=== PATIENT | female | born 1970 | race Caucasian/White ===

== ENCOUNTER 2020-07-31 09:55 | Outpatient (REF) | payer OTHER, SELFPAY ==
[2020-07-31 12:33] LABS: Vitamin D 25-OH Total 27.3 ng/mL (>30)
[2020-07-31 12:39] LABS: Cholesterol 243 mg/dL; HDL Cholesterol 44 mg/dL; LDL Cholesterol Calculated 171 mg/dl; Triglycerides 142 mg/dL
== END 2020-07-31 09:56 | disposition home or self-care (01) ==
LOC: HO.HMGCLDS 09:55
PROVIDERS: PCP Internal Medicine; Visit Provider Internal Medicine
DX: Z00.01 Encounter for general adult medical examination with abnormal findings (principal); Z78.0 Asymptomatic menopausal state
CPT/HCPCS: 80061; 82306

== ENCOUNTER → 2020-09-10 13:29 | Outpatient (BNVA) | payer OTHER, SELFPAY | PROVIDERS: PCP Internal Medicine; Referring Provider Internal Medicine; Visit Provider Nurse Practitioner Family | DX: Z76.89 Persons encountering health services in other specified circumstances (principal) ==

== ENCOUNTER 2020-10-06 13:35 | Outpatient (REF) | payer OTHER, SELFPAY ==
[2020-10-07 12:06] LABS: BV Int Neg Control Negative (Negative); BV Int Pos Control Positive (Positive)
[2020-10-08 09:02] LABS: C. trachomatis RNA TMA NOT DETECTED (NOT DETECTED); N. gonorrhoeae RNA TMA NOT DETECTED (NOT DETECTED)
[2020-10-09 18:32] LABS: HPV mRNA E6/E7 rflx Not Detected (Not Detected)
== END 2020-10-06 13:36 | disposition home or self-care (01) ==
LOC: HO.LAB 13:35
PROVIDERS: PCP Internal Medicine; Visit Provider Advanced Practice Midwife
DX: Z12.4 Encounter for screening for malignant neoplasm of cervix (principal); N89.8 Other specified noninflammatory disorders of vagina
CPT/HCPCS: 36415; 87480; 87491; 87510; 87591; 87624; 87660; 88141; 88142

== ENCOUNTER 2021-02-20 12:53 | Outpatient (REF) | payer OTHER, SELFPAY ==
[2021-02-20 14:18] LABS: Hematocrit 40.1 % (37-47); Mean Corpuscular HGB Conc 32.4 g/dl (31.0-35.0); Mean Corpuscular Volume 92.4 fL (80-98); Mean Platelet Volume 12.5 fL (9.4-12.3); Platelet Count 134 X10*3/uL (160-400); Red Blood Count 4.34 X10*6/uL (4.20-5.50); Red Cell Distribution Width 12.9 % (11.0-16.0); White Blood Count 8.9 X10*3/uL (4.8-10.8)
[2021-02-20 14:36] LABS: Alanine Aminotransferase 16 U/L (0-31); Alkaline Phosphatase 53 U/L (39-117); Anion Gap 10 (12-20); Aspartate Amino Transferase 18 U/L (5-31); Bilirubin Total 0.4 mg/dL (0.0-1.0); Blood Urea Nitrogen 11 mg/dL (9-16); Calcium 8.9 mg/dL (8.4-10.2); Carbon Dioxide 28 mmol/L (22-29); Chloride 106 mmol/L (96-108); Estimated Glomerular Filt Rate > 60; Glucose Random 83 mg/dL (60-115); Sodium 140 mmol/L (135-145); Total Protein 6.2 g/dL (6.5-8.0)
[2021-02-20 14:45] LABS: TSH reflex Free T4 0.62 uIU/mL (0.32-4.0)
== END 2021-02-20 12:54 | disposition home or self-care (01) ==
LOC: HO.HMGCLDS 12:53
PROVIDERS: Nurse Practitioner Family; PCP Internal Medicine; Visit Provider Internal Medicine
DX: Z12.11 Encounter for screening for malignant neoplasm of colon (principal); E03.9 Hypothyroidism, unspecified
CPT/HCPCS: 36415; 80053; 84443; 85027

== ENCOUNTER 2021-06-12 14:32 | Emergency (ER) | payer OTHER, SELFPAY ==
--- NOTE | ~2021-06-12 | XR_ITS ---
EXAMINATION: XR CHEST XR RIBS, BILATERAL CLINICAL INFORMATION: Chest wall pain COMPARISON: Chest radiograph from 03/01/2020 TECHNIQUE: 5 views of the bilateral ribs chest FINDINGS: No focal consolidation. No pneumothorax. Trachea is midline. Cardiac mediastinal silhouette is not enlarged. No large pleural effusions. Soft tissues are unremarkable. Surgical clips in the right upper quadrant abdomen. Degenerative changes of the thoracolumbar spine. No acute visualized rib fractures. XR/XR chest 2V IMPRESSION: 1. No acute cardiopulmonary process. 2. No acute visualized rib fractures.
--- NOTE | ~2021-06-12 | XR_ITS ---
EXAMINATION: XR CHEST XR RIBS, BILATERAL CLINICAL INFORMATION: Chest wall pain COMPARISON: Chest radiograph from 03/01/2020 TECHNIQUE: 5 views of the bilateral ribs chest FINDINGS: No focal consolidation. No pneumothorax. Trachea is midline. Cardiac mediastinal silhouette is not enlarged. No large pleural effusions. Soft tissues are unremarkable. Surgical clips in the right upper quadrant abdomen. Degenerative changes of the thoracolumbar spine. No acute visualized rib fractures. XR/XR ribs BI 3V IMPRESSION: 1. No acute cardiopulmonary process. 2. No acute visualized rib fractures.
[2021-06-12 14:40] VITALS: BP 170/84; PULSE 72; O2SAT 100
[2021-06-12 14:44] VITALS: BP 140/73; PULSE 67; RESP 16; TEMP 36.9; O2SAT 98; BMI 22.6
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
== END 2021-06-12 15:30 | disposition left against medical advice (07) ==
PROVIDERS: Emergency Provider Emergency Medicine; PCP Internal Medicine
DX: S20.213A Contusion of bilateral front wall of thorax, initial encounter (principal); S80.12XA Contusion of left lower leg, initial encounter; M79.662 Pain in left lower leg; R07.89 Other chest pain; F17.210 Nicotine dependence, cigarettes, uncomplicated; V43.62XA Car passenger injured in collision with other type car in traffic accident, initial encounter; Y93.9 Activity, unspecified; Y92.410 Unspecified street and highway as the place of occurrence of the external cause; Y99.9 Unspecified external cause status; Z79.899 Other long term (current) drug therapy; Z71.6 Tobacco abuse counseling
CPT/HCPCS: 71046; 71110; 99283

== ENCOUNTER → 2021-08-19 14:04 | Outpatient (BNVA) | payer OTHER, SELFPAY | PROVIDERS: PCP Internal Medicine; Visit Provider Nurse Practitioner Family | DX: M19.041 Primary osteoarthritis, right hand (principal); M19.042 Primary osteoarthritis, left hand; M79.7 Fibromyalgia | CPT/HCPCS: 99212 ==

== ENCOUNTER 2021-10-19 11:09 | Outpatient (REF) | payer OTHER, SELFPAY ==
[2021-10-19 14:26] LABS: Cholesterol 190 mg/dL; HDL Cholesterol 35 mg/dL; LDL Cholesterol Calculated 126 mg/dl; Triglycerides 149 mg/dL
[2021-10-19 14:38] LABS: Vitamin D 25-OH Total 30.9 ng/mL (>30)
== END 2021-10-19 11:10 | disposition home or self-care (01) ==
LOC: HO.HMGCLDS 11:09
PROVIDERS: Visit Provider Internal Medicine
DX: E55.9 Vitamin D deficiency, unspecified (principal); E78.5 Hyperlipidemia, unspecified
CPT/HCPCS: 36415; 80061; 82306

== ENCOUNTER 2023-01-11 09:40 | Outpatient (REF) | payer OTHER, SELFPAY ==
[2023-01-11 12:03] LABS: Alanine Aminotransferase 13 U/L (0-31); Anion Gap 11 (12-20); Aspartate Amino Transferase 16 U/L (5-31); Blood Urea Nitrogen 10 mg/dL (9-16); Calcium 9.5 mg/dL (8.4-10.2); Carbon Dioxide 29 mmol/L (22-29); Chloride 107 mmol/L (96-108); Cholesterol 251 mg/dL; Estimated Glomerular Filt Rate 60; Glucose Fasting 93 mg/dL (60-99); HDL Cholesterol 46 mg/dL; LDL Cholesterol Calculated 184 mg/dl; Sodium 143 mmol/L (135-145); Triglycerides 109 mg/dL
[2023-01-11 12:06] LABS: Free T4 (Free Thyroxine) 1.16 ng/dL (0.71-1.85); Thyroid Stimulating Hormone 1.32 uIU/mL (0.32-4.0); Vitamin D 25-OH Total 36.1 ng/mL (>30)
== END 2023-01-11 09:41 | disposition home or self-care (01) ==
LOC: HO.HMGCLDS 09:40
PROVIDERS: PCP Internal Medicine; Visit Provider Internal Medicine
DX: E03.9 Hypothyroidism, unspecified (principal); E55.9 Vitamin D deficiency, unspecified; E78.5 Hyperlipidemia, unspecified; M19.90 Unspecified osteoarthritis, unspecified site
CPT/HCPCS: 36415; 80048; 80061; 82306; 84439; 84443; 84450; 84460

== ENCOUNTER 2023-01-14 10:43 | Outpatient (REF) | payer OTHER, SELFPAY ==
--- NOTE | ~2023-01-14 | XR_ITS ---
EXAMINATION: XR LUMBOSACRAL SPINE WITH OBLIQUES CLINICAL INFORMATION: Low back pain COMPARISON: Previous x-ray May 2017 TECHNIQUE: AP, both oblique, and lateral views of the lumbar spine. Lateral view of the lumbosacral junction. FINDINGS: Bone alignment is normal. No fracture or dislocation. There may be a transitional vertebral body segment or 6 lumbar-type vertebral bodies. Disc spaces are normal. There is lower lumbar spine facet arthritis. No pars defect is seen. Paraspinal soft tissues are normal. XR/XR lumbar spine 4V min IMPRESSION: Lower lumbar spine facet arthritis.
== END 2023-01-14 10:44 | disposition home or self-care (01) ==
LOC: HO.HMGCX 10:43
PROVIDERS: PCP Internal Medicine; Visit Provider Internal Medicine
DX: M54.50 Low back pain, unspecified (principal)
CPT/HCPCS: 72110

== ENCOUNTER 2023-03-30 12:24 | Outpatient (REF) | payer OTHER, SELFPAY ==
--- NOTE | ~2023-03-30 | MM_ITS ---
EXAMINATION: MM SCREENING DIGITAL BREAST TOMOSYNTHESIS, BILATERAL CLINICAL INFORMATION: Screening. Asymptomatic. The lifetime risk of breast cancer based on the Tyrer-Cuzick Model is 6.1%. COMPARISON: Mammography: This study is compared with the prior examination 2010. TECHNIQUE: Digital breast tomosynthesis is performed in both the craniocaudal and mediolateral oblique views along with computer-aided detection (CAD). Synthesized 2D images are generated from the tomosynthesis. FINDINGS: There are scattered areas of fibroglandular density (ACR BI-RADS breast composition Category b). There are no significant masses, abnormal calcifications, or other abnormalities. MM/MM tomosynthesis screening BI IMPRESSION: No mammographic evidence of malignancy. ASSESSMENT: BI-RADS BI-RADS 1 - Negative RECOMMENDATION: Routine annual mammography screening. 1 year F/U This examination should not preclude the clinical evaluation of a suspicious palpable abnormality. This patient's information was entered into a reminder system with a target due date for their next mammogram.
== END 2023-03-30 12:25 | disposition home or self-care (01) ==
LOC: HO.MAMMO 12:24
PROVIDERS: PCP Internal Medicine; Visit Provider Internal Medicine
DX: Z12.31 Encounter for screening mammogram for malignant neoplasm of breast (principal)
CPT/HCPCS: 77063; 77067

== ENCOUNTER → 2023-03-30 12:30 | Outpatient (BNV) | payer OTHER, SELFPAY | PROVIDERS: PCP Internal Medicine; Visit Provider Radiology Diagnostic Radiology | DX: Z12.31 Encounter for screening mammogram for malignant neoplasm of breast (principal) | CPT/HCPCS: 77063; 77067 ==

== ENCOUNTER 2023-07-05 09:48 | Outpatient (AMB) | payer OTHER, SELFPAY ==
--- NOTE | 2023-07-05 10:06 | MHC.OFFVIS ---
Intake Vital Signs 07/05/23 10:20 Height 5 ft 4 in Weight 126 lb 5.198 oz BMI 21.7 BP 100/70 Blood Pressure Location Lt brachial Position Sitting Pulse 75 Pulse Source Pulse Oximeter Temp 97.4 F Temp Source Skin Pulse Oximetry (%) 96 Oxygen Delivery Method Room Air Intake Visit Reasons: OA Intake Note: Patient presents today to follow up on OA. c/o back pain, finger swelling and pain, left outter abd pain Press Assistant And Feeder Required: No Accompanied by: Self / Same As Patient Allergies Sulfa (Sulfonamide Antibiotics) [Sulfa (Sulfonamides)] Allergy (Mild, Verified 07/05/23 10:06) Swelling Medication List - Last Reconciled 07/05/23 by Walter Lowry MD albuterol sulfate 90 mcg/actuation 1 inh inhalation Q4H PRN atorvastatin 10 mg PO DAILY diclofenac sodium 50 mg PO BID PRN levothyroxine 88 mcg PO QAM methadone 120 mg PO DAILY HPI HPI Comments History of Present Illness Details The patient presents for evaluation of her osteoarthritis and fibromyalgia. She is on diclofenac 50 mg once or twice a day. That is somewhat helpful but she does note that she gets epigastric pains intermittently. She has been referred to GI for this but has not kept an appointment yet. She also has other pains involving the neck, shoulders, lower back, buttock areas, knees and left lower leg. These tend to be worse with more physical activity. She notes that in the hands she has had bony deformities for years. She has remained on methadone, currently taking 120 mg daily. COUNTS INCLUDE 234 BEDS AT THE [facility] Medical History (Updated 07/05/23 @ 10:54 by Walter Lowry MD) Mild intermittent asthma Lumbago syndrome Absent pedal pulses Heavy sensation of lower extremity Vitamin D deficiency Dyslipidemia Asthma Smoker unmotivated to quit Osteoarthritis Depression with anxiety Opiate addiction Acquired hypothyroidism Menopause Hx of drainage of abscess Surgical History Hx of cholecystectomy Family History Father Unknown family medical history Mother HTN (hypertension) CVD (cardiovascular disease) Maternal Grandmother Diabetes mellitus Brother Substance use disorder Mental health disorder Social History Housing: Apartment Alcohol intake: never Patient Tobacco Use Status: Current someday Tobacco user Tobacco use type: Cigarette Cigarettes Per Day: 4 Years Smoked: 33 e-Cigarette/Vaping Use: Never Used Second Hand Smoke Exposure: Yes Substance Use Type: Methamphetamine service: No Current occupational status: disabled Cognitive needs: No Hearing needs: No Vision needs: No Review of Systems Const Details: Fatigue and low energy. Negative for appetite change, weight change, fever, chills, malaise Eyes Details: Negative for vision change, dry eyes,headaches and dizziness Card Details: Negative chest pain, edema and syncope Resp Details: Negative for SOB, cough and wheezing GI Details: Mild episodes of epigastric pain and nausea. Negative nausea, abdominal pain, bowel changes, diarrhea, constipation and bloody stool. Endo Details: Negative for polyuria and polydypsia Bryon/Lymph Details: Negative for excessive bruising or bleeding. Physical Exam Vital Signs: Last Vital Signs Temp 97.4 F 07/05/23 10:20 Pulse 75 07/05/23 10:20 BP 100/70 07/05/23 10:20 Pulse Ox 96 07/05/23 10:20 Oxygen Delivery Method Room Air 07/05/23 10:20 BMI result Body Mass Index 21.7 APPEARANCE: Patient in no acute distress EYES no redness, pupils equal and reactive to light, eyelids normal. No temporal artery tenderness, redness or swelling. EXTREMITIES: No edema, slight left calf tenderness but no swelling or redness. No palpable veins. She has normal peripheral pulses. NEURO: Oriented and alert x3. No focal weakness. Reflexes symmetric. Gait normal. SKIN: No inflammatory or neoplastic lesions. Normal color and turgor JOINT EXAM:?? Cervical Spine:.? Mild pain with extremes of normal range of motion with some cervical muscle tenderness. Thoracic Spine:.? No scoliosis.? No tenderness on palpation. Lumbar Spine:.? Alignment normal.? Mild pain at the extremes of normal range of motion. Some paraspinal muscle tenderness. Chest Wall:? No tenderness, swelling, increased warmth or erythema. Hands:.? Both hands have some mild bony enlargement at all the PIP joints. There is more prominent bony enlargement and tenderness at the D IP joints. The right 2nd PIP has had surgery with eschar present. This right 2nd distal phalanx seems to be shorter am with less tissue on the ulnar side than the other distal phalanges. There is no tenderness or breaks in the skin currently. There is minimal motion at that right 2nd D IP joint. Wrists:.? Normal pain-free range of motion without tenderness, swelling, increased warmth or erythema. Elbows:. Normal pain-free range of motion without tenderness, swelling, increased warmth or erythema. Shoulders:.?? Full range of motion with mild discomfort at the extremes. There is some mild medial compartment tenderness but no effusion, weakness, swelling, increased warmth or erythema. Hips:. Left: There is mild lateral and posterior lateral pain with extremes of abduction or external rotation. No groin pain with motion. Right:? Full range of motion without pain. Hip bursa:? Mild left trochanteric tenderness. Knees:?? Normal pain-free range of motion with mild patellofemoral crepitus and some slight medial compartment tenderness but no effusion, swelling, increased warmth or erythema.? Ankles:.? Normal pain-free range of motion without tenderness, swelling, increased warmth or erythema. Feet:.? Normal pain-free range of motion without tenderness, swelling, increased warmth or erythema. Tender points:.? Mild tenderness to digital palpation at the occiput, trapezius, second rib, lateral epicondyle, knees, greater trochanter and gluteal area bilaterally. ? Results Reviewed Results Reviewed: [facility] [place] [facility] [address] [place] [address] XRay Report Signed Patient: Ingris Lowe MR#: [id number] : 1970 Acct:[id number] Age/Sex: 52 / F ADM Date: 01/14/[address]: Richa Acuna MD Ordering Physician: Richa Acuna MD Date of Service: 01/14/23 Procedure(s): XR lumbar spine 4V min Accession Number(s): [id number] cc: Richa Acuna MD~ EXAMINATION: XR LUMBOSACRAL SPINE WITH OBLIQUES CLINICAL INFORMATION: Low back pain COMPARISON: Previous x-ray May 2017 TECHNIQUE: AP, both oblique, and lateral views of the lumbar spine. Lateral view of the lumbosacral junction. FINDINGS: Bone alignment is normal. No fracture or dislocation. There may be a transitional vertebral body segment or 6 lumbar-type vertebral bodies. Disc spaces are normal. There is lower lumbar spine facet arthritis. No pars defect is seen. Paraspinal soft tissues are normal. XR/XR lumbar spine 4V min IMPRESSION: Lower lumbar spine facet arthritis. Dictated By: Freda Neumann MD Assessment & Plan Assessment & Plan (1) NSAID long-term use: Code(s): Z79.1 - shelter (current) use of non-steroidal anti-inflammatories (NSAID) (2) Fibromyalgia: Code(s): M79.7 - Fibromyalgia (3) Osteoarthritis of both hands: Code(s): M19.041 - Primary osteoarthritis, right hand; M19.042 - Primary osteoarthritis, left hand Plan On exam she does not have any signs of an active inflammatory arthritis. There are clear signs of osteoarthritis in the fingers, particularly in the DIP joints. The patient has some left buttock pain and back pain likely related to lumbar osteoarthritis. She is on a hefty dose of methadone so I would be wary about adding other sedating medications such as gabapentin or pregabalin for the fibromyalgia. Light aerobic activity is encouraged. She should stop the diclofenac as it may be causing gastritis and just stick with acetaminophen up to 1 g t.i.d.. She should follow through with planned GI consultation. Follow-up at 6 months would be reasonable. Orders: Orders Complete Blood Count Auto Diff Today Z79.1 - shelter (current) use of non-steroidal anti-inflammatories (NSAID) Coding Level of Care Code Est Pt Level 3 (38706) Diagnoses NSAID long-term use Z79.1 Fibromyalgia M79.7 Osteoarthritis of both hands M19.041; M19.042
[2023-07-05 10:20] VITALS: BP 100/70; PULSE 75; TEMP 36.3; O2SAT 96; BMI 21.7
== END 2023-07-05 11:00 | disposition home or self-care (01) ==
PROVIDERS: PCP Internal Medicine; Visit Provider Internal Medicine Rheumatology
DX: Z79.1 Long term (current) use of non-steroidal anti-inflammatories (NSAID) (principal); M79.7 Fibromyalgia; M19.041 Primary osteoarthritis, right hand; M19.042 Primary osteoarthritis, left hand
CPT/HCPCS: 99213

== ENCOUNTER → 2023-07-05 09:48 | Outpatient (BNVA) | payer OTHER, SELFPAY | PROVIDERS: PCP Internal Medicine; Visit Provider Internal Medicine Rheumatology | DX: M19.041 Primary osteoarthritis, right hand (principal); M19.042 Primary osteoarthritis, left hand; M79.7 Fibromyalgia; Z79.1 Long term (current) use of non-steroidal anti-inflammatories (NSAID) | CPT/HCPCS: 99212 ==

== ENCOUNTER 2023-07-05 11:01 | Outpatient (REF) | payer OTHER, SELFPAY | END 2023-07-05 11:02 | disposition home or self-care (01) | LOC: HO.10HDL 11:01 | PROVIDERS: Visit Provider Internal Medicine Rheumatology | DX: Z79.1 Long term (current) use of non-steroidal anti-inflammatories (NSAID) (principal) | CPT/HCPCS: 36415; 85025 ==

== ENCOUNTER 2023-08-08 10:21 | Outpatient (REF) | payer OTHER, SELFPAY ==
[2023-08-08 14:13] LABS: Alanine Aminotransferase 10 U/L (0-31); Aspartate Amino Transferase 19 U/L (5-31); Cholesterol 244 mg/dL (<200); Free T4 (Free Thyroxine) 1.09 ng/dL (0.71-1.85); HDL Cholesterol 51 mg/dL (>40); LDL Cholesterol Calculated 166 mg/dL (<100); Thyroid Stimulating Hormone 1.28 uIU/mL (0.32-4.0); Triglycerides 138 mg/dL (<150)
== END 2023-08-08 10:22 | disposition home or self-care (01) ==
LOC: HO.HMGCLDS 10:21
PROVIDERS: PCP Internal Medicine; Visit Provider Internal Medicine
DX: E78.5 Hyperlipidemia, unspecified (principal); E03.9 Hypothyroidism, unspecified
CPT/HCPCS: 36415; 80061; 84439; 84443; 84450; 84460

== ENCOUNTER 2025-01-01 12:58 | Outpatient (AMB) | payer OTHER, SELFPAY ==
[2025-01-01 13:29] VITALS: BP 118/78; PULSE 80; O2SAT 97; BMI 19.7
--- NOTE | 2025-01-01 13:29 | A.OFFPC_ITS ---
Vital Signs 01/01/25 13:29 Height 5 ft 4 in Weight 115 lb BMI 19.7 BP 118/78 Blood Pressure Location Lt brachial Position Sitting Pulse 80 Pulse Source Pulse Oximeter Pulse Oximetry (%) 97 Oxygen Delivery Method Room Air Intake Visit Reasons: PE Caser In Required: No Accompanied by: Self / Same As Patient Allergies Sulfa (Sulfonamide Antibiotics) [Sulfa (Sulfonamides)] Allergy (Mild, Verified 01/01/25 13:53) Swelling Medication List - Last Reconciled 01/01/25 by Richa Acuna MD albuterol sulfate 90 mcg/actuation 1 inh inhalation Q4H PRN methadone 125 mg PO DAILY Tobacco use date assessed: 01/01/25 Dental Screening Dental Screen Date: 01/01/25 Did you have a dental visit in the last 12 months?: Yes Did you have a dental problem in the last 6 months where you did not have access to dental care?: No Was dental information given to patient?: Patient has dentist HPI PE HPI Details 54-year-old lady with a history mild int ermittent asthma, history of opiate addiction currently on methadone program,, has dyslipidemia, acquired hypothyroidism, and history of depression and anxietyneing followed at [facility], here today for her physical exam. Complains of polyarthralgia, has an appointment with Rheumatology at [facility] already scheduled. She had a cervical cancer screening done in 2020 at [facility], and is overdue for her screening mammogram, last done in 2022.. She has never had colon cancer screening. [facility] Medical History (Updated 01/02/25 @ 01:13 by Richa Acuna MD) History of drug abuse Methadone maintenance therapy patient Mild intermittent asthma Lumbago syndrome Heavy sensation of lower extremity Vitamin D deficiency Dyslipidemia Smoker unmotivated to quit Osteoarthritis Depression with anxiety Opiate addiction Acquired hypothyroidism Menopause Hx of drainage of abscess Surgical History Hx of cholecystectomy Family History Father Unknown family medical history Mother HTN (hypertension) CVD (cardiovascular disease) Maternal Grandmother Diabetes mellitus Brother Substance use disorder Mental health disorder Social History Housing: Apartment Alcohol intake: never Patient Tobacco Use Status: Current someday Tobacco user Tobacco use type: Cigarette Cigarettes Per Day: 4 Years Smoked: 33 e-Cigarette/Vaping Use: Never Used Second Hand Smoke Exposure: Yes Substance Use Type: Methamphetamine service: No Current occupational status: disabled Cognitive needs: No Hearing needs: No Vision needs: No Questionnaire PHQ-9 Over the last 2 weeks, how often have you been bothered by any of the following problems? 1. Little interest or pleasure in doing things: nearly every day 2. Feeling down, depressed, or hopeless: nearly every day 3. Trouble falling or staying asleep, or sleeping too much: nearly every day 4. Feeling tired or having little energy: nearly every day 5. Poor appetite or overeating: nearly every day 6. Feeling bad about yourself - or that you are a failure or have let yourself or your family down: several days 7. Trouble concentrating on things, such as reading the newspaper or watching television: not at all 8. Moving or speaking so slowly that other people could have noticed. Or the opposite - being so fidgety or restless that you have been moving around a lot more than usual: several days 9. Thoughts that you would be better off or of hurting yourself in some way: not at all Total score: 17 Depression Screening Interpretation: Positive (Patient states previously seen at [facility] but lost therapist, referred to Ayesha Riggins for referral to see Psychiatry and get therapy) Depression Screening Follow-up: Existing condition and Community Mental Health Worker F/U Depression Screening Done: Yes 83441 - PHQ-9 Billing: Yes Source: Developed by Drs. Mathieu Stephenson, Lucille Marsh, Pratik Ovalles and colleagues, with an educational waqar from [employer]. Thrive Questionnaire Date Thrive assessed: 01/01/25 I am a: Patient What is your living situation today?: I have a steady place to live Within the past 12 months, did the food you bought not last and you didn't have the money to get more?: Sometimes True Within the past 12 months, did you worry whether your food would run out before you got money to buy more?: Often true Do you have trouble paying for medicines?: I choose not to answer this question Do you have trouble getting transportation to medical appointments?: I choose not to answer this question Do you have trouble paying your heating and electricity bill?: I choose not to answer this question Do you have trouble taking care of your child, family member or friend?: I choose not to answer this question Do you have trouble with day-to-day activities such as bathing, preparing meals, shopping, managing finances, etc.?: I choose not to answer this question Are you currently unemployed and looking for a job?: I choose not to answer this question Are you interested in more education?: I choose not to answer this question Please select the resources that you would like help with: None Currently or been in a relationship where the following occur: I choose not to answer THRIVE Score: 2 AUDIT C Alcohol Use Questionnaire (AUDIT-C) 1. How often do you have a drink containing alcohol?: Never 3. How often do you have six or more drinks on one occasion?: Never Total Score: 0 Score Reviewed/Action Taken: Yes JOSEFINA-7 AMB Questionnaire JOSEFINA-7 Date JOSEFINA - 7 assessed: 01/01/25 Feeling nervous, anxious, or on edge: 3 = Nearly every day Not being able to stop or control worryin = Nearly every day Worrying too much about different things: 3 = Nearly every day Trouble relaxin = Nearly every day Being so restless that it is hard to sit still: 3 = Nearly every day Becoming easily annoyed or irritable: 3 = Nearly every day Feeling afraid as if something awful might happen: 3 = Nearly every day Total JOSEFINA-7 score (0-4 normal; 5-9 mild; 10-14 moderate; 15-21 severe): 21 Source: Developed by Drs. Mathieu Stephenson, Lucille Marsh, Pratik Ovalles and colleagues, with an educational waqar from [employer]. JOSEFINA-7 Assessment Billing JOSEFINA-7 Assessment Tool: JOSEFINA-7 Assessment 44016 Review of Systems Const Reports body aches, Reports fatigue, Denies headache(s), Reports lethargy, Denies poor appetite and Denies weakness Eyes Reports no additional complaints ENT Reports no additional complaints and Denies headache(s) Card Reports no additional complaints and Denies pedal edema Resp Reports no additional complaints GI Reports no additional complaints Reports no additional complaints Musc Reports as per HPI Skin/Breast Denies breast skin changes, Denies breast pain, Denies breast mass and Denies dry skin Neuro Reports no additional complaints, Denies headache(s) and Denies weakness Psych Reports as per HPI Endo Reports no additional complaints and Reports fatigue Bryon/Lymph Reports no additional complaints Aller/Immun Reports no additional complaints Physical exam (Primary Care) Vital Signs: Last Vital Signs Pulse 80 01/01/25 13:29 BP 118/78 01/01/25 13:29 Pulse Ox 97 01/01/25 13:29 Oxygen Delivery Method Room Air 01/01/25 13:29 BMI result Body Mass Index 19.7 Tobacco/Smoking Status: Tobacco use Status Tobacco use date assessed 01/01/25 01/01/25 13:36 Patient Tobacco Use Status Current someday Tobacco 01/01/25 13:36 Tobacco use type Cigarette 01/01/25 13:36 e-Cigarette/Vaping Use Never Used 01/01/25 13:36 Are you ready to quit: No Tobacco cessation counseling provided: Yes PHQ-9: PHQ-9 Score PHQ-9: Total score 17 01/01/25 23:45 Depression Screening Interpretation: Positive (Patient states previously seen at [facility] but lost therapist, referred to Ayesha Riggins for referral to see Psychiatry and get therapy) Depression Screening Follow-up: Existing condition and Community Mental Health Worker F/U Thrive Assessment: Date of Thrive Assessment Date Thrive assessed 01/01/25 01/01/25 13:36 Currently or been in a relationship where the following occur: I choose not to answer Const Other: Alert oriented x3, no acute distress noted, ambulatory without assistance Orientation/consciousness: patient oriented x3 HENAK Head: Yes normocephalic Ears: TM's normal bilaterally and EAC's normal General nose exam: Normal external nose present Face and sinus: Yes face symmetric Eyes General: appearance normal, both eyes and all related structures Neck Other: S1-S2 present regular rate and rhythm Chest Breast/axilla palpation: normal palpation of the breasts Resp Auscultation: clear to auscultation bilaterally Cardio Other: S1-S2 present, sinus bradycardia, no murmurs GI Other: Normal bowel sounds, soft, nontender, no mass palpated General: Yes no CVA tenderness Back/Spine/Pelvis Back: no CVA tenderness Thoracic/Lumbar Spine: paraspinal muscle tenderness bilaterally Skin General skin exam: no rashes or lesions noted Neuro General: patient oriented x3, tone normal, moves all extremities, no focal motor deficits and CN's II-XI intact bilaterally Extrem Other: Enlarged D IP and PIP joints in both hands, with ulnar deviation bilateral General: Yes no pedal edema, Yes no calf tenderness and Yes normal gait Psych Appearance: grossly normal Mental Status: mental status grossly normal Speech and movement: Normal speech and movement present Thought process: Flight of ideas present Coding Level of Care Code Est Pt Prev Care 40-64y(15462) Diagnoses Annual visit for general adult medical examination with abnormal findings Z00.01 Acquired hypothyroidism E03.9 Opiate addiction F11.20 Smoker unmotivated to quit F17.200 Dyslipidemia E78.5 Mild intermittent asthma J45.20 Encounter for screening for malignant neoplasm of colon Z12.11 Screening for malignant neoplasm of cervix Z12.4 Methadone maintenance therapy patient F11.20 History of drug abuse F19.11 Depression with anxiety F41.8 Primary osteoarthritis of both hands M19.041; M19.042 Osteoarthritis type: primary Additional Codes JOSEFINA-7 Assessment Billing - JOSEFINA-7 Assessment Tool: JOSEFINA-7 Assessment 18425 ([id number]) PHQ-9 - 88578 - PHQ-9 Billing: Yes ([id number]) Assessment & Plan Assessment & Plan (1) Annual visit for general adult medical examination with abnormal findings: Code(s): Z00.01 - Encounter for general adult medical examination with abnormal findings Plan: Will check appropriate labs. Recommended dental visit every 6 months and regular eye exams, at least every 2 years. Take adequate calcium in diet and vitamin-D 3 at 2000 IU per cap once a day, in addition to weight-bearing exercises to help maintain good muscle tone and weight control. Instructed to do self-breast exam, and recommended to get yearly mammogram, ordered today. Referred to [facility] for were screening colonoscopy (2) Acquired hypothyroidism: Code(s): E03.9 - Hypothyroidism, unspecified Category: Medical Plan: Ordered TSH, free T4 and thyroid peroxidase antibody, patient has stopped it on levothyroxine several months ago (3) Opiate addiction: Comment: on Methadone , goes to program Code(s): F11.20 - Opioid dependence, uncomplicated Category: Medical Plan: Currently on methadone program. Do done today showed presence of sinus bradycardia with no acute ST-T changes (4) Smoker unmotivated to quit: Code(s): F17.200 - Nicotine dependence, unspecified, uncomplicated Category: Social Hx Plan: Patient strongly advised to stop smoking, as smoking damages blood vessels, degenerative of joints and spine, damage to lungs and heart., predisposes to developing certain cancers like lung, breast, bladder, colon. Recommended to try decreasing cigarette use by 1-2 cigarettes a day, patient states that she has now just been smoking at least 4 cigarettes a day Advised to monitor what triggers are for smoking so that this can be discussed on the next office visit. We can discuss different options to quit smoking when ready. (5) Dyslipidemia: Code(s): E78.5 - Hyperlipidemia, unspecified Category: Medical Plan: Fasting lipid panel ordered. Reinforced importance of following low-cholesterol diet and getting regular exercise (6) Mild intermittent asthma: Code(s): J45.20 - Mild intermittent asthma, uncomplicated Category: Medical Plan: Strongly recommended to quit smoking. Patient alread received Prevnar 20 and reminded to get her yearly flu shots (7) Encounter for screening for malignant neoplasm of colon: Code(s): Z12.11 - Encounter for screening for malignant neoplasm of colon Plan: Referral to [facility] ordered for her screening colonoscopy (8) Screening for malignant neoplasm of cervix: Code(s): Z12.4 - Encounter for screening for malignant neoplasm of cervix Plan: Referred to [facility] for her routine Pap and pelvic exam, last seen in 2020 (9) Methadone maintenance therapy patient: Code(s): F11.20 - Opioid dependence, uncomplicated Category: Medical Plan: Patient currently attending methadone program. EKG done today showed presence of sinus bradycardia with no acute ST-T changes (10) History of drug abuse: Code(s): F19.11 - Other psychoactive substance abuse, in remission Category: Medical Plan: Currently on a methadone program (11) Depression with anxiety: Comment: sees therapist at [facility] Code(s): F41.8 - Other specified anxiety disorders Category: Medical Plan: She is currently not being seen by a therapist or seeing Psychiatry, not on any medications. Patient requests referral again for therapy. Patient seen by Ayesha Riggins , mental health coordinator, for assistance with getting a to see a therapist and psychiatrist (12) Osteoarthritis of both hands: Code(s): M19.041 - Primary osteoarthritis, right hand; M19.042 - Primary osteoarthritis, left hand Category: Medical Qualifiers: Osteoarthritis type: primary Qualified Code(s): M19.041 - Primary osteoarthritis, right hand; M19.042 - Primary osteoarthritis, left hand Plan: Patient complaining mainly of being and stiffness in fingers of both hands. Advised to take Tylenol arthritis 650 mg per tablet to take 1 tablet every 8 hours as needed for Prolia, may also try massaging diclofenac gel 1% to affected joints to 2 3 times a day as needed for pain. She already has an appointment to see a new aircraft landing gear inspector in April at [facility] Orders: Orders Free T4 (Free Thyroxine) 01/01/25 E03.9 - Hypothyroidism, unspecified, E78.5 - Hyperlipidemia, unspecified, F11.20 - Opioid dependence, uncomplicated, J45.20 - Mild intermittent asthma, uncomplicated, Z00.01 - Encounter for general adult medical examination with abnormal findings Lipid Panel 01/01/25 E03.9 - Hypothyroidism, unspecified, E78.5 - Hyperlipidemia, unspecified, F11.20 - Opioid dependence, uncomplicated, J45.20 - Mild intermittent asthma, uncomplicated, Z00.01 - Encounter for general adult medical examination with abnormal findings MM tomosynthesis screening BI 01/01/25 Z12.31 - Encounter for screening mammogram for malignant neoplasm of breast AMB EKG-In Office 01/01/25 F11.20 - Opioid dependence, uncomplicated, F19.11 - Other psychoactive substance abuse, in remission Thyroid Stimulating Hormone 01/01/25 E03.9 - Hypothyroidism, unspecified, E78.5 - Hyperlipidemia, unspecified, F11.20 - Opioid dependence, uncomplicated, J45.20 - Mild intermittent asthma, uncomplicated, Z00.01 - Encounter for general adult medical examination with abnormal findings Thyroid Peroxidase Antibodies 01/01/25 E03.9 - Hypothyroidism, unspecified, E78.5 - Hyperlipidemia, unspecified, F11.20 - Opioid dependence, uncomplicated, J45.20 - Mild intermittent asthma, uncomplicated, Z00.01 - Encounter for general adult medical examination with abnormal findings Complete Blood Count Auto Diff 01/01/25 E03.9 - Hypothyroidism, unspecified, E78.5 - Hyperlipidemia, unspecified, F11.20 - Opioid dependence, uncomplicated, J45.20 - Mild intermittent asthma, uncomplicated, Z00.01 - Encounter for general adult medical examination with abnormal findings Vitamin D 25-OH Total 01/01/25 E03.9 - Hypothyroidism, unspecified, E78.5 - Hyperlipidemia, unspecified, F11.20 - Opioid dependence, uncomplicated, J45.20 - Mild intermittent asthma, uncomplicated, Z00.01 - Encounter for general adult medical examination with abnormal findings Comprehensive [place]. Panel Fast 01/01/25 E03.9 - Hypothyroidism, unspecified, E78.5 - Hyperlipidemia, unspecified, F11.20 - Opioid dependence, uncomplicated, J45.20 - Mild intermittent asthma, uncomplicated, Z00.01 - Encounter for general adult medical examination with abnormal findings Referrals [facility] Referral Z12.4 - Encounter for screening for malignant neoplasm of cervix Gastroenterology Referral Z12.11 - Encounter for screening for malignant neoplasm of colon
== END 2025-01-01 14:38 | disposition home or self-care (01) ==
LOC: HO.HMCC 12:58
PROVIDERS: PCP Internal Medicine; Visit Provider Internal Medicine
DX: Z00.01 Encounter for general adult medical examination with abnormal findings (principal); E03.9 Hypothyroidism, unspecified; F11.20 Opioid dependence, uncomplicated; F19.11 Other psychoactive substance abuse, in remission; F17.200 Nicotine dependence, unspecified, uncomplicated; E78.5 Hyperlipidemia, unspecified; J45.20 Mild intermittent asthma, uncomplicated; Z12.11 Encounter for screening for malignant neoplasm of colon; F41.8 Other specified anxiety disorders; M19.041 Primary osteoarthritis, right hand; M19.042 Primary osteoarthritis, left hand

== ENCOUNTER → 2025-01-01 12:58 | Outpatient (BNVA) | payer OTHER, SELFPAY | PROVIDERS: PCP Internal Medicine; Visit Provider Internal Medicine | DX: Z00.01 Encounter for general adult medical examination with abnormal findings (principal); J45.20 Mild intermittent asthma, uncomplicated; F11.20 Opioid dependence, uncomplicated; F41.9 Anxiety disorder, unspecified; F19.11 Other psychoactive substance abuse, in remission; E78.5 Hyperlipidemia, unspecified; E03.9 Hypothyroidism, unspecified; F32.A Depression, unspecified; F17.210 Nicotine dependence, cigarettes, uncomplicated; F41.8 Other specified anxiety disorders; M19.041 Primary osteoarthritis, right hand; M19.042 Primary osteoarthritis, left hand; Z71.89 Other specified counseling | CPT/HCPCS: 96127; 99396 ==

== ENCOUNTER 2025-01-06 16:33 | Emergency (ER) | payer OTHER, SELFPAY ==
[2025-01-06 17:00] VITALS: BP 155/68; PULSE 51; RESP 14; TEMP 36.7; O2SAT 95; BMI 23.3
--- NOTE | 2025-01-06 17:13 | ED_ITS ---
HPI - General Adult General Chief complaint: General Medical Stated complaint: Withdrawl, did not take methadone today Time Seen by Provider: 01/06/25 16:49 Source: patient and police Mode of arrival: EMS Limitations: no limitations History of Present Illness ED Provider: Dr. Dennys Capellan HPI narrative: 54-year-old female with a history of hyperlipidemia, osteoarthritis, depression, anxiety, opiate use disorder who was in a methadone clinic and receives methadone 125 mg daily who was arrested yesterday and missed her methadone dose today. Patient is currently in police custody and he according to the officer, the patient may be released today or tomorrow. The patient states that she feels like she was withdrawing from her methadone. She states that her whole body aches. She was chills. She was nausea with a an upset stomach. She denied vomiting or diarrhea. Related Data Home Medications ?Medication ?Instructions ?Recorded ?Confirmed methadone 40 mg soluble tablet 125 mg PO DAILY 01/01/25 01/01/25 Previous Rx's ?Medication ?Instructions ?Recorded albuterol sulfate 90 mcg/actuation 1 inh inhalation Q4H PRN Shortness 12/25/23 aerosol inhaler Of Breath #8.5 grams Allergies Allergy/AdvReac Type Severity Reaction Status Date / Time Sulfa (Sulfonamide Allergy Mild Swelling Verified 01/06/25 17:00 Antibiotics) [Sulfa (Sulfonamides)] Review of Systems Review of Systems: Yes all other systems are reviewed and are negative PMFSH Past Medical History Medical History (Updated 01/06/25 @ 17:17 by Dennys Capellan MD) History of drug abuse Methadone maintenance therapy patient Mild intermittent asthma Lumbago syndrome Heavy sensation of lower extremity Vitamin D deficiency Dyslipidemia Smoker unmotivated to quit Osteoarthritis Depression with anxiety Opiate addiction Acquired hypothyroidism Menopause Hx of drainage of abscess Surgical History Hx of cholecystectomy Family History Family History Father Unknown family medical history Mother HTN (hypertension) CVD (cardiovascular disease) Maternal Grandmother Diabetes mellitus Brother Substance use disorder Mental health disorder Social History Social History Housing: Apartment Alcohol intake: never Patient Tobacco Use Status: Current someday Tobacco user Tobacco use type: Cigarette Cigarettes Per Day: 4 Years Smoked: 33 e-Cigarette/Vaping Use: Never Used Second Hand Smoke Exposure: Yes Substance Use Type: Methamphetamine Do you have a plan to hurt others: No Plan service: No Current occupational status: disabled Cognitive needs: No Hearing needs: No Vision needs: No Physical Exam ED Vital Signs: Vital Signs - 24 hr 01/06/25 17:00 Temperature 98.0 F Pulse Rate 51 Respiratory Rate 14 Blood Pressure 155/68 H Pulse Oximetry 95 Oxygen Delivery Method Room Air BMI result Body Mass Index 23.3 Vital signs revealed bradycardia with a pulse of 51, elevated blood pressure of 155/68 otherwise vital signs were normal Exam: General: Awake, alert in no distress Head: Normocephalic, atraumatic EENT: PERRL, Lids normal, sclera normal, conjunctiva normal, nose normal , ears normal, throat without erythema or exudates Neck: Supple, no adenopathy Lung: breath sounds symmetric, no wheezing, rales or rhonchi Chest: symmetric movement, nontender Heart: regular rate and rhythm, normal S1, S2 no murmurs or rubs Abdomen: soft, non-tender, nondistended, normal bowel sounds Back: no vertebral tenderness, no CVAT Extremities: no deformities, moves all extremities symmetrically Neuro: Awake, alert, oriented, normal speech, cranial nerves intact, moves all extremities symmetrically Psych: Pleasant, cooperative Medical Decision Making Medical Decision Making MDM Narrative: 54-year-old female with a history of hyperlipidemia, osteoarthritis, depression, anxiety, opiate use disorder who was in a methadone clinic treated with methadone 125 mg daily who was arrested yesterday and missed her methadone dose today. Patient feels like she is withdrawing from methadone in his complaining of body aches, chills, upset stomach with nausea. She denied vomiting or diarrhea. Vital signs revealed bradycardia with a pulse of 51, elevated blood pressure of 155/68 otherwise vital signs were normal. Physical examination was unremarkable. Differential diagnosis: ?Includes but is not limited to opiate withdrawal, viral syndrome Course: 17:21 Patient was presentation is consistent with opiate withdrawal. Patient was given methadone 125 mg orally here in the emergency department. I told the patient if she he was released from correction tomorrow then she should follow up with the methadone clinic to get her dose or she should use her take-home bottles to dose herself. She was advised to continue taking medications as prescribed. She was given printed and verbal instructions and discharged home in police custody Admission/Observation Consideration of admission/observation: Escalation of care including admission/observation considered (No) Chronic Conditions Patient?s care impacted by: Other (Anxiety, depression, opiate use disorder, methadone maintenance program) Discharge Plan Discharge Clinical Impression: Methadone withdrawal Patient Disposition: Home, Self-Care Additional Instructions: You missed your dose of methadone today since you were incarcerated. You were given methadone 125 mg orally here in the emergency department. If you get released from correction today, you need to make sure you get your next methadone dose from your methadone clinic or use the take-home bottles that you have. Continue taking your other medications as prescribed Follow-up with your doctor in 2 days. Please return to the emergency department if your symptoms get worse or if you develop any symptoms that are concerning to you. Prescriptions: No Action albuterol sulfate 90 mcg/actuation HFA aerosol inhaler 1 inh inhalation Q4H PRN (Reason: Shortness Of Breath) Qty: 8.5 2RF methadone 40 mg tablet,soluble 125 mg PO DAILY Print Language: Faroese
--- NOTE | 2025-01-06 17:30 | PC.NURSE ---
called [facility] to verify methadone dose spoke with rod dominguez states patient received 6 take home bottles of 125mg on 12/31 - would have taken her final take home bottle today however d/t being in police custody was unable to do so
--- NOTE | 2025-01-06 17:46 | HE.PHANOTE ---
RE METHADONE VERIFICATION LAST DOSE 125 MG TAKEN 01/05/25 VERIFIED BY N. 6 TAKE HOME BOTTLES GIVEN 12/31/24.
[2025-01-06] MEDS: methADONE HCl 20 MG/2 ML ORAL.CONC 125 MG PO (18:04)
[2025-01-06 18:58] VITALS: BP 155/68; PULSE 51; RESP 14; TEMP 36.7; O2SAT 95
== END 2025-01-06 18:58 | disposition home or self-care (01) ==
PROVIDERS: Emergency Provider Emergency Medicine Emergency Medical Services
DX: F11.23 Opioid dependence with withdrawal (principal); M79.10 Myalgia, unspecified site; T40.2X5A Adverse effect of other opioids, initial encounter; Y92.9 Unspecified place or not applicable; R52 Pain, unspecified
CPT/HCPCS: 99282; 99283

== ENCOUNTER 2025-01-18 10:19 | Outpatient (REF) | payer OTHER, SELFPAY ==
[2025-01-18 11:32] LABS: MANUAL DIFF FLAG NO
[2025-01-18 11:35] LABS: Basophils Absolute Auto 0.1 X10*3/uL (0.0-0.2); Basophils Percent Auto 1.4 % (0-2); Eosinophils Absolute Auto 0.2 X10*3/uL (0.0-0.4); Eosinophils Percent Auto 2.5 % (0-4); Hematocrit 41.8 % (37.0-47.0); Hemoglobin 13.9 g/dl (12.0-16.0); Imm Gran Abs Auto 0.02 X10*3/uL (0.00-0.03); Imm Gran Pct Auto 0.3 % (0.0-0.4); Lymphocytes Percent Auto 25.7 % (20-40); Mean Corpuscular HGB Conc 33.3 g/dl (31.0-35.0); Mean Corpuscular Hemoglobin 30.5 pg (27.0-33.0); Mean Corpuscular Volume 91.9 fL (80.0-98.0); Mean Platelet Volume 11.2 fL (9.4-12.3); Monocytes Absolute Auto 0.4 X10*3/uL (0.1-1.2); Monocytes Percent Auto 5.2 % (2-11); Neutrophils Absolute Auto 5.1 x10*3/uL (2.0-8.3); Neutrophils Percent Auto 64.9 % (45-73); Platelet Count 164 X10*3/uL (160-400); Red Blood Count 4.55 X10*6/uL (4.20-5.50); Red Cell Distribution Width 13.2 % (11.0-16.0); White Blood Count 7.9 X10*3/uL (4.8-10.8)
[2025-01-18 12:20] LABS: Alanine Aminotransferase 13 U/L (0-31); Albumin Level 4.1 g/dL (3.5-5.0); Alkaline Phosphatase 51 U/L (39-117); Anion Gap 7 (12-20); Aspartate Amino Transferase 21 U/L (5-31); Bilirubin Total 0.4 mg/dL (0.0-1.0); Blood Urea Nitrogen 12 mg/dL (9-16); Calcium 9.3 mg/dL (8.4-10.2); Carbon Dioxide 30 mmol/L (22-29); Chloride 108 mmol/L (96-108); Cholesterol 211 mg/dL (<200); Estimated Glomerular Filt Rate > 60; Glucose Fasting 110 mg/dL (60-99); HDL Cholesterol 51 mg/dL (>40); LDL Cholesterol Calculated 140 mg/dL (<100); Potassium 4.1 mmol/L (3.3-5.1); Sodium 141 mmol/L (135-145); Total Protein 6.4 g/dL (6.5-8.0); Triglycerides 104 mg/dL (<150)
[2025-01-18 12:26] LABS: Free T4 (Free Thyroxine) 0.89 ng/dL (0.71-1.85); Thyroid Stimulating Hormone 1.42 uIU/mL (0.32-4.0); Vitamin D 25-OH Total 52.8 ng/mL (>30)
[2025-01-23 06:58] LABS: Thyroid Peroxidase Antibodies <1 IU/mL (<9)
== END 2025-01-18 10:20 | disposition home or self-care (01) ==
LOC: HO.HHCL 10:19
PROVIDERS: Visit Provider Internal Medicine
DX: Z00.01 Encounter for general adult medical examination with abnormal findings (principal); E03.9 Hypothyroidism, unspecified; E78.5 Hyperlipidemia, unspecified; F11.20 Opioid dependence, uncomplicated; J45.20 Mild intermittent asthma, uncomplicated
CPT/HCPCS: 36415; 80053; 80061; 82306; 84439; 84443; 85025; 86376

== ENCOUNTER 2025-07-17 11:07 | Outpatient (AMB) | payer OTHER, SELFPAY ==
--- NOTE | 2025-07-17 11:29 | MHC.PC.OV ---
Vital Signs 07/17/25 11:30 Height 5 ft 5 in Weight 119 lb BMI 19.8 BP 130/80 Blood Pressure Location Rt brachial Position Sitting Respiration 15 Pulse 75 Pulse Source Pulse Oximeter Temp 98.1 F Temp Source Oral Pulse Oximetry (%) 95 Oxygen Delivery Method Room Air Intake Visit Reasons: 6 months f/up/LVM to move Intake Note: Pt is here today for her 6mo. f/u Allergies Sulfa (Sulfonamide Antibiotics) (Sulfa (Sulfonamides)) Allergy (Mild, Verified 07/17/25 11:47) Swelling Medication List - Last Reconciled 07/17/25 by Richa Acuna MD albuterol sulfate 90 mcg/actuation 1 inh inhalation Q4H PRN methadone (Methadone Intensol) 125 mg PO DAILY Tobacco use date assessed: 07/17/25 Dental Screening Dental Screen Date: 07/17/25 Did you have a dental visit in the last 12 months?: No Did you have a dental problem in the last 6 months where you did not have access to dental care?: No Was dental information given to patient?: Patient has dentist HPI 6 months f/up/LVM to move HPI Details 55year-old lady with a history mild intermittent asthma, history of opiate addiction currently on methadone program,, has dyslipidemia, acquired hypothyroidism not on any thyroid supplement, and history of depression and anxiety followed at [facility], here today for her follow-up visit. [facility] Medical History History of drug abuse Methadone maintenance therapy patient Mild intermittent asthma Lumbago syndrome Heavy sensation of lower extremity Vitamin D deficiency Dyslipidemia Smoker unmotivated to quit Osteoarthritis Depression with anxiety Opiate addiction Acquired hypothyroidism Menopause Hx of drainage of abscess Surgical History Hx of cholecystectomy Family History Father Unknown family medical history Mother HTN (hypertension) CVD (cardiovascular disease) Maternal Grandmother Diabetes mellitus Brother Substance use disorder Mental health disorder Social History Housing: Apartment Alcohol intake: never Patient Tobacco Use Status: Current someday Tobacco user Tobacco use type: Cigarette Cigarettes Per Day: 4 Years Smoked: 33 e-Cigarette/Vaping Use: Never Used Second Hand Smoke Exposure: Yes Substance Use Type: Methamphetamine service: No Current occupational status: disabled Cognitive needs: No Hearing needs: No Vision needs: No Questionnaire Thrive Questionnaire Date Thrive assessed: 01/01/25 JOSEFINA-7 AMB Questionnaire JOSEFINA-7 Date JOSEFINA - 7 assessed: 01/01/25 Source: Developed by Drs. Mathieu Stephenson, Lucille Marsh, Pratik Ovalles and colleagues, with an educational waqar from [employer] Physical exam (Primary Care) Vital Signs: Last Vital Signs Temp 98.1 F 07/17/25 11:30 Pulse 75 07/17/25 11:30 Resp 15 07/17/25 11:30 BP 130/80 07/17/25 11:30 Pulse Ox 95 07/17/25 11:30 Oxygen Delivery Method Room Air 07/17/25 11:30 BMI result Body Mass Index 19.8 Tobacco/Smoking Status: Tobacco use Status Tobacco use date assessed 07/17/25 07/17/25 11:34 Patient Tobacco Use Status Current someday Tobacco 07/17/25 11:29 Tobacco use type Cigarette 07/17/25 11:29 e-Cigarette/Vaping Use Never Used 07/17/25 11:29 Thrive Assessment: Date of Thrive Assessment Date Thrive assessed 01/01/25 07/17/25 11:29 Office Procedures Flu Questionnaire Does the patient have a severe egg allergy?: No Does the patient have severe life threatening allergies?: No Does the patient have a fever or illness today?: No Has the patient ever had Guillain-[place] Syndrome?: No Has the patient ever had any past reaction to a flu shot?: No Immunizations Fluarix [id number] (PF) 45 mcg (15 mcg x 3)/0.5 mL IM syringe Performing Provider: Richa Acuna MD Performing Location: [facility] [place], [place] [facility] Administered by: Rose Mary Luz CMA on 07/17/25 12:05 Dose Route Admin Location Dispensed Lot Number Expiration Date [facility] [place] [facility] [employer] 0.5 mL IM Right Deltoid 0.5 mL [id number] 03/25/26 [id number] [id number] VIS Given Date VIS Provided VIS Publication Date 07/17/25 Single Vaccine 24 Eligibility Eligibility Date Funding Source Not [facility] Eligible 07/17/25 Private Coding Diagnoses Acquired hypothyroidism E03.9 Opiate addiction F11.20 Smoker unmotivated to quit F17.200 Dyslipidemia E78.5 Mild intermittent asthma J45.20 Assessment & Plan Assessment & Plan (1) Acquired hypothyroidism: Code(s): E03.9 - Hypothyroidism, unspecified Category: Medical (2) Opiate addiction: Comment: on Methadone , goes to program Code(s): F11.20 - Opioid dependence, uncomplicated Category: Medical (3) Smoker unmotivated to quit: Code(s): F17.200 - Nicotine dependence, unspecified, uncomplicated Category: Social Hx (4) Dyslipidemia: Code(s): E78.5 - Hyperlipidemia, unspecified Category: Medical (5) Mild intermittent asthma: Code(s): J45.20 - Mild intermittent asthma, uncomplicated Category: Medical Plan: Flu shot given, already received her pneumonia vaccine in the past Orders: Orders MM tomosynthesis screening BI Today Z12.31 - Encounter for screening mammogram for malignant neoplasm of breast Influenza [id number] Immunization Today Z23 - Encounter for immunization Referrals [facility] Referral E03.9 - Hypothyroidism, unspecified, E78.5 - Hyperlipidemia, unspecified, F11.20 - Opioid dependence, uncomplicated, F17.200 - Nicotine dependence, unspecified, uncomplicated, J45.20 - Mild intermittent asthma, uncomplicated, Z12.4 - Encounter for screening for malignant neoplasm of cervix
[2025-07-17 11:30] VITALS: BP 130/80; PULSE 75; RESP 15; TEMP 36.7; O2SAT 95; BMI 19.8
== END 2025-07-17 12:17 | disposition home or self-care (01) ==
LOC: HO.HMCC 11:08
PROVIDERS: PCP Internal Medicine; Visit Provider Internal Medicine
DX: Z23 Encounter for immunization (principal)

== ENCOUNTER → 2025-07-17 11:07 | Outpatient (BNVA) | payer OTHER, SELFPAY | PROVIDERS: PCP Internal Medicine; Visit Provider Internal Medicine | DX: J45.20 Mild intermittent asthma, uncomplicated (principal); E03.9 Hypothyroidism, unspecified; E78.5 Hyperlipidemia, unspecified; R73.01 Impaired fasting glucose; F41.9 Anxiety disorder, unspecified; F32.A Depression, unspecified; F11.20 Opioid dependence, uncomplicated; F17.210 Nicotine dependence, cigarettes, uncomplicated; Z23 Encounter for immunization | CPT/HCPCS: 90471; 90656; 99212 ==

== ENCOUNTER 2025-08-09 08:37 | Outpatient (REF) | payer OTHER, SELFPAY ==
[2025-08-09 10:59] LABS: Alanine Aminotransferase 14 U/L (0-31); Aspartate Amino Transferase 24 U/L (5-31); Cholesterol 212 mg/dL (<200); HDL Cholesterol 48 mg/dL (>40); Triglycerides 79 mg/dL (<150)
[2025-08-09 11:22] LABS: Free T4 (Free Thyroxine) 0.97 ng/dL (0.71-1.85); Thyroid Stimulating Hormone 1.74 uIU/mL (0.32-4.0)
== END 2025-08-09 08:38 | disposition home or self-care (01) ==
LOC: HO.HMGCLDS 08:37
PROVIDERS: PCP Internal Medicine; Visit Provider Internal Medicine
DX: Z00.00 Encounter for general adult medical examination without abnormal findings (principal); E03.9 Hypothyroidism, unspecified; E78.5 Hyperlipidemia, unspecified; F11.20 Opioid dependence, uncomplicated; J45.20 Mild intermittent asthma, uncomplicated
CPT/HCPCS: 36415; 80061; 84439; 84443; 84450; 84460